=== PATIENT | female | born 1990 | race African-American/Black ===

== ENCOUNTER 2019-07-12 06:16 | Day surgery (SDC) | payer BC ==
[~2019-07-12] VITALS: Ht 167.6 cm; Wt 101.5 kg
[2019-07-12] MEDS ORDERED: IV RINGERS,LACTATED 1000ML 1,000 ML IV SCH (07:00)
[2019-07-12] MEDS ORDERED: ONDANSETRON PF 4 MG/2 ML VIAL. IV PRN (07:00)
[2019-07-12] MEDS ORDERED: HYDROmorphone 2 MG/ML VIAL IV PRN (07:00)
[2019-07-12] MEDS ORDERED: fentaNYL PF VIAL 100 MCG/2 ML VIAL IV PRN ×2 (07:00)
[2019-07-12] MEDS ORDERED: MORPHINE SULFATE 2 MG/ML VIAL. IV PRN (07:00)
[2019-07-12] MEDS ORDERED: PROCHLORPERAZINE 10 MG/2 ML VIAL. IV PRN (07:00)
[2019-07-12] MEDS ORDERED: CLIN30GE14 TP (07:02)
[2019-07-12] MEDS ORDERED: BUPIVACAINE-EPI 0.5%-1:200000 MPF 30 ML VIAL. ONE (07:02)
[2019-07-12] MEDS ORDERED: PROPOFOL 20 ML IV ONE (07:26)
[2019-07-12] MEDS ORDERED: ONDANSETRON PF 4 MG/2 ML VIAL. ONE (07:26)
[2019-07-12] MEDS ORDERED: LIDOCAINE 2% PF 5 ML VIAL. ONE (07:26)
[2019-07-12] MEDS ORDERED: FAMOTIDINE 20 MG/2 ML VIAL ONE (07:26)
[2019-07-12] MEDS ORDERED: DEXAMETHASONE SOD PHOS 4 MG/ML VIAL ONE ×2 (07:26)
[2019-07-12] MEDS ORDERED: MIDAZOLAM HCL/PF 2 MG/2 ML VIAL. ONE (07:27)
[2019-07-12] MEDS ORDERED: fentaNYL PF VIAL 100 MCG/2 ML VIAL ONE ×2 (07:27→09:37)
[2019-07-12] MEDS ORDERED: ROCURONIUM 50 MG/5 ML VIAL. ONE (07:30)
[2019-07-12] MEDS ORDERED: SUCCINYLCHOLINE 200 MG/10 ML VIAL. ONE (08:05)
[2019-07-12] MEDS ORDERED: METHYLENE BLUE 0.5% 10ml AMPULE. ONE (08:16)
[2019-07-12] MEDS ORDERED: SEVOFLURANE 16 TO 30 MINUTES. IH ONE (08:17)
[2019-07-12] MEDS ORDERED: NEOSTIGMINE METHYLSULFATE 5 MG/5 ML SYRINGE. ONE (08:18)
[2019-07-12] MEDS ORDERED: GLYCOPYRROLATE 1 MG/5 ML VIAL. ONE (08:18)
[2019-07-12] MEDS: NEOMY/BACITR/POLYMYXIN OINT PACKET. TP ONE ×4 (08:23→08:38)
[2019-07-12] MEDS ORDERED: SURGICEL HEMOSTAT 4X8 EACH. ONE (08:37)
--- NOTE | 2019-07-12 08:52 | PDOC ---
BRIEF OPERATIVE NOTE Date: Jul 12, 2019 Pre-Op Diagnosis recurrent pilonidal cyst Post-Op Diagnosis same Procedure Performed excision Surgeon Oleksandr Anesthesia Type: General Blood Loss 5cc IV Fluid 600cc Specimens Obtained skin and subcutaneous tissue supragluteal cleft Findings recurrent cyst Complications none Operative Note Wk # [id number] BRIA FAUSTIN MD Jul 12, 2019 08:52
--- NOTE | 2019-07-12 08:57 | DISCH ---
DISCHARGE INSTRUCTIONS Condition on Discharge Condition on Discharge: Stable Activity After Discharge Activity Instructions for Disc: Activity as tolerated, Avoid exertion Lifting Instructions after Dis: No heavy lifting Driving Instructions after Dis: Do not drive today Diet after Discharge Diet after Discharge: Regular Wound Incision Care Wound/Incision Care: Ice to area for comfort Other wound/incision instructi: change outer dressing as needed Follow-Up Follow up with: Oleksandr 07/14 for dressing change BRIA FAUSTIN MD Jul 12, 2019 08:57
--- NOTE | 2019-07-12 08:59 | OP ---
DATE OF SURGERY: 07/12/2019 PREOPERATIVE DIAGNOSIS: Recurrent pilonidal cyst. POSTOPERATIVE DIAGNOSIS: Recurrent pilonidal cyst. PROCEDURE: Excision. SURGEON: Bria Faustin MD ANESTHESIA: General endotracheal. ESTIMATED BLOOD LOSS: 5 mL. INTRAVENOUS FLUIDS: 600 mL. INDICATIONS: The patient is a 29-year-old who years ago had excision of a pilonidal cyst with subsequent reexcision. She comes in now with a small area at the superior aspect of her scar with some purulent drainage and erythema. She is brought for excision. DESCRIPTION OF PROCEDURE: The patient brought to the operating suite, given a general endotracheal anesthetic, placed in the prone position and the buttocks taped apart. The area was prepped and draped in usual sterile fashion. The opening to the process was gently probed and then injected with methylene blue to stain the extent of the process. An elliptical incision was made around the opening and the skin and underlying process were removed en bloc. Culture made, wound irrigated and checked for hemostasis. When present and a correct sponge count obtained. The wound was dressed with Surgicel, antibiotic ointment, 1-inch plain Nu Gauze soaked in saline, 4 x 4s. Sterile dressing applied. The patient taken out of the prone position, awakened from her anesthetic and taken to the recovery room in satisfactory condition. BRIA FAUSTIN MD DR: LUCILA/noé JOB#: [id number] / [id number]
[2019-07-12] MEDS ORDERED: NEOMY/BACITR/POLYMYXIN OINT PACKET. TP ONE (09:00)
[2019-07-12] MEDS ORDERED: ceFAZolin 2GM PREMIX 2 GM/50 ML BAG IV ONE (09:00)
[2019-07-12] MEDS ORDERED: OXYC1TAB19 PO (09:14)
[2019-07-12] MEDS ORDERED: SENN1TAB50 PO (09:17)
[2019-07-12 09:55] VITALS: BP 128/80
[2019-07-12] MEDS ORDERED: oxyCODONE/APAP 7.5/325 1 TAB TABLET PO ONE (10:00)
--- NOTE | 2019-07-14 15:07 | PATHOLOGY ---
[facility] Accession Number: [id number] . 01 Material submitted: . buttock - RECURRENT PILONIDAL CYST . 01 Clinical history: . recurrent pilonidal cyst . 02 Diagnosis: Skin and subcutaneous tissue, excision recurrent pilonidal cyst: - Pilonidal abscess/sinus tract, with surrounding scarring and chronic inflammation. (JPM/db; 07/14/2019) LBQ 07/14/2019 1140 Local . 02 Electronically signed: . Ed Lopez MD, Pathologist NPI- [id number] . 01 Gross description: . The specimen is received in formalin labeled "Stoney, Elsie" and "pilonidal cyst/sinus tract". Received are multiple segments of the fragmented, pale jacobs-yellow soft tissue ranging in size from 1.5 cm to 2.8 cm. The largest fragment displays an attached skin ellipse measuring 3.2 x 0.5 cm. The epidermal surface displays a slightly concave area measuring 0.8 x 0.2 cm. Sectioning through this segment reveal a possible tract area measuring 1.8 x 1.5 x 0.3 cm. No solid masses or nodules are identified. Sectioning through the remainder of the segments within the container displays a pale yellow-white fibroadipose cut surface with no additional gross abnormalities. A loan representative section of the sinus tract is submitted in cassette A1. (SNA; 07/12/2019) QAC/GOYO 07/14/2019 1138 Local . 02 Pathologist provided ICD-10: L05.91 . 02 CPT . 897059 Specimen Comment: A courtesy copy of this report has been sent to [phone] Specimen Comment: [id number] Specimen Comment: Report sent to / DR JIMENEZ Performed at: 01 [facility] [address], [place], [place] [id number] MD Blade Jain MD Phone: [phone] Performed at: 02 [facility] [address] [place], [place] [id number] MD Ed Lopez MD Phone: [phone]
== END 2019-07-12 10:35 | disposition home or self-care (01) ==
LOC: SURG 06:16
PROVIDERS: ATTEND Surgery
DX: L05.01 Pilonidal cyst with abscess (principal); E66.9 Obesity, unspecified; Z68.36 Body mass index [BMI] 36.0-36.9, adult; Z72.89 Other problems related to lifestyle
CPT/HCPCS: 11770; 81025; 87071; 87075; A7015; J0330; J0696; J1100; J2001; J2250; J2405; J2704; J2710; J3010; J3490; A4461